=== PATIENT | male | born 1940 | race Caucasian/White ===

== ENCOUNTER 2016-07-09 12:48 | Observation (INO) ==
[2016-07-09] MEDS ORDERED: Naloxone 0.4 MG/ML INJ IVP PRN (14:36)
[2016-07-09] MEDS ORDERED: *HR* Atropine Sulfate 1 MG/10 ML SYRINGE IVP PRN (14:38)
--- NOTE | 2016-07-09 14:43 | Pulmonology History & Physical ---
<PareshLester Hollins - Last Filed: 07/09/16 17:06> Date of Encounter: 07/09/16 Time of Encounter: 14:00 Assessment and Plan (1) Ingestion, drug, inadvertent or accidental Current visit: Yes Status: Acute Ragleyhasmukh Melgoza obtained active prescription list from their pharmacy - [email or web address]. Suspected ingestion: ASA 81mg Plavix 75mg Ranitidine Synthroid 100 mcg Ranexa 500mg Coreg 25mg Lasix 20mg Isosorbide mononitrate CR 120mg ER Patient did not overdose. Symptoms appear to be due to antihypertensive and rate limiting medications. - 12 Lead EKG in ICU shows sinus bradycardia with rate of 48. Normal intervals with LA 175, QRS 108, QT/QTc 483/451. Normal axis. 1mm Q-wave in inferio- lateral leads. Non-specific STT changes. - Place on monitor - Atropine 0.5mg IVP PRN bradycardia - 0.9% NS at maintenance rate - 125mL/hr - Cardiac diet - Continue to observe. - Anticipate discharge tomorrow. Qualifiers: Encounter type: initial encounter Qualified Code(s): T50.901A - Poisoning by unspecified drugs, medicaments and biological substances, accidental ( unintentional), initial encounter (2) Bradycardia Current visit: Yes Status: Acute Likely secondary to accidental ingestion. Plan as above. (3) Hypotension Current visit: Yes Status: Acute Likely secondary to accidental ingestion. Plan as above. Qualifiers: Hypotension type: hypotension due to drug Qualified Code(s): I95.2 - Hypotension due to drugs (4) DVT prophylaxis Current visit: Yes Status: Acute SCD's and TEDs. History of Present Illness Chief complaint: accidental overdose HPI: Mr. Justin is a 76 year old male who arrives via EMS from [facility]. Patient mistook his 's medications for his own and took her AM supply. Patient has reported psychiatric history to explain this mistake. Sent to [facility] ICU for monitoring. While at [facility], patient reported blurry vision, chest pain, nausea, dizziness - all now resolved. At [place] [facility]: patient's troponin was 0.00 and was bradycardic responsive to atropine. On intake to [facility] ICU, patient admitted to mild headache. Denied dizziness, changes in vision, weakness, chest pain, palpitations, dyspnea, diaphoresis. No tinnitis. Patient's is now bedside. Patient has a history of hypotension. Past Med Surg Social Fam HX - Past Medical History Medical history: GERD, hyperlipidemia, hypertension, kidney stones, myocardial infarction, TIA Psychiatric history: no psych history - Past Surgical History Surgical History: angioplasty/stent, herniorrhaphy - Social History Smoking Status: Never smoker Smokeless Tobacco Status: No Alcohol use: none Drug use: none - Family History Mother Living Status: Age at : 84 Cause of : unknown Hx Family Cardiac Disorders: Yes Father Living Status: Age at : 86 Hx Family Cardiac Disorders: Yes Hx Family Cancer: Yes Hx Family Endocrine Disorder: Yes (Diabetic) Medications and Allergies Clopidogrel [Plavix] 75 mg PO DAILY 06/21/15 [History] Metoprolol [Lopressor] 25 mg PO DAILY 06/21/15 [History] Omeprazole [PriLOSEC] 40 mg PO DAILY 06/21/15 [History] Citalopram Hydrobromide [Citalopram HBr] 40 mg PO DAILY 07/09/16 [History] TraZODone 50 mg PO DAILY 07/09/16 [History] Allergies No Known Allergies Allergy (Verified 06/21/15 08:28) All Systems: A 10-system review of systems was performed and is negative for pertinent findings except as documented above in the HPI. - Constitutional Constitutional: as per HPI - EENT Eyes: as per HPI Ears: as per HPI Nose, mouth and throat: headache(s), no dizziness, no dry mouth, no hoarseness - Cardiovascular Cardiovascular: no chest pain, no diaphoresis, no dyspnea, no edema, no irregular heart rhythm, no radiating jaw, neck or arm pain, no lightheadedness, no palpitations, no radiating pain, no syncope - Respiratory Respiratory: no cough, no dyspnea, no wheezing - Gastrointestinal Gastrointestinal: no cramping, no diarrhea, no heartburn, no nausea, no vomiting - Musculoskeletal Musculoskeletal: no weakness, no abnormal gait, no back pain, no numbness, no radiating pain into limb - Neurological Neurological: no abnormal hearing, no abnormal speech, no behavioral changes, no confusion Physical Examination Vital Signs: Afebrile. Patient bradycardic at 55. Mild hypotension with bp 90/56. O2 sat 88 % on RA with RR 14-16. General appearance: no acute distress, alert Eyes: nonicteric ENT: oropharynx moist Neck: supple Effort: normal Inspection: normal Auscultation: bilateral: clear Cardiovascular: regular rate and rhythm Gastrointestinal: normoactive bowel sounds, soft, non-tender, non-distended Integumentary: normal Extremities: no cyanosis, no edema, pink and warm, pulses normal Musculoskeletal: no deformities normal mental status, pupils equal and round mood appropriate, affect normal - VTE Reasons for not Prescribing Prophylaxis: Treatment not Indicated - Low risk for VTE <Arian Holland - Last Filed: 07/09/16 20:25> Date of Encounter: 07/09/16 History of Present Illness HPI: Mr. Justin is a 76 year old male All Systems: A 10-system review of systems was performed and is negative for pertinent findings except as documented above in the HPI. Physical Examination Vital Signs: Vital Signs, Last 4 Hours Temp Pulse Resp BP Pulse Ox 07/09/16 17:00 55 19 104/65 94 07/09/16 16:26 97.8 F 07/09/16 16:00 49 19 89/62 94 07/09/16 15:00 52 18 106/59 95 07/09/16 14:02 56 16 109/65 95 - Attending Attestation I examined this patient and my medical decision-making was reviewed with the ENDORSEMENT CLERK/PA/Advanced Practice Nurse/Resident Physician. I agree with the documented findings, disposition and treatment plan as described except to the extent set forth below. Patient seen and examined. Labs, radiology, chart personally reviewed. 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 He is at risk of side effects such as hypotension and bradycardia and that is why he needs close monitoring. If remain stable, will plan to discharge him tomorrow. He needs to be careful and better way to separate his medications from his . GI: Nutrition per dietary and GI prophylaxis per routine Heme: DVT prophylaxis per routine Renal; urine out put and renal funtion reviewed Endorcine: blood glucose is monitored Lines: all lines checked and no evidence of infections Skin: skin care to prevent pressure ulcers per nursing routine care Discussed with patient and his family at bedside.
[2016-07-09] MEDS: 0.9 % Sodium Chloride 1,000 ML IVC SCH (16:57)
[2016-07-10] MEDS: 0.9 % Sodium Chloride 1,000 ML IVC SCH (00:57)
--- NOTE | 2016-07-10 07:09 | Electrocardiograph Report ---
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
--- NOTE | 2016-07-10 07:45 | Discharge Summary ---
<Jeronimo Ferris - Last Filed: 07/10/16 07:43> Date of Encounter: 07/10/16 Time of Encounter: 07:43 - Discharge Diagnosis (1) Bradycardia Priority: Primary Status: Resolved Comments: Resolved. The patient is back to his baseline. Responded well to atropine as needed. (2) Hypotension Priority: Primary Status: Resolved Comments: Resolved. Qualifiers: Hypotension type: hypotension due to drug Qualified Code(s): I95.2 - Hypotension due to drugs (3) Ingestion, drug, inadvertent or accidental Priority: Secondary Status: Resolved Comments: The patient reports event as accidental. No suicidal ideation or thoughts of self harm. Qualifiers: Encounter type: initial encounter Qualified Code(s): T50.901A - Poisoning by unspecified drugs, medicaments and biological substances, accidental ( unintentional), initial encounter - Discharge Medications Home Medications: Clopidogrel [Plavix] 75 mg PO DAILY 06/21/15 [History] Metoprolol [Lopressor] 25 mg PO DAILY 06/21/15 [History] Omeprazole [PriLOSEC] 40 mg PO DAILY 06/21/15 [History] Citalopram Hydrobromide [Citalopram HBr] 40 mg PO DAILY 07/09/16 [History] TraZODone 50 mg PO DAILY 07/09/16 [History] Allergies/Adverse Reactions: Allergies No Known Allergies Allergy (Verified 06/21/15 08:28) Date of admission: 07/09/16 13:49 Primary care physician: Bassem Ramirez MD Discharging clinician: Arian Holland Anticipated date of discharge: 07/10/16 - Patient Status Disposition: Home, Self-Care Condition: Good Functional capacity at discharge: independent ambulation Overall status at discharge: patient is back to baseline - Discharge Instructions Follow Up With: Bassem Ramirez MD [Primary Care Provider] - 07/12/16 10:00 am Additional Instructions: Be cautious when taking your home medications. If you experience any symptoms such as chest pain, shortness of breath, dizziness, or loss of consciousness please return to the [facility]. - Diet and Activity Activity: increase activity as tolerated Diet: advance to your usual diet - Hospital Course Hospital course: Mr. Justin is a 76 year old male who has a PMH of GERD, HLD, HTN, kidney stones, previous NH, and TIA who presented for symptoms of blurry vision, chest pain, nausea, and dizziness. He had reportedly taken his 's medications instead of his own morning medications. The patient had a negative troponin and his bradycardia was responsive to atropine. The patient has a history of hypotension and took some of his 's medication including a medication for hypertension. He was monitored overnight in the ICU. The patient denies overdose or attempted self harm. He will be discharged in stable condition to return home and is back to his baseline. All questions were answered and the patient agrees with the plan of care. - Time Spent with Patient Total time spent providing and/or coordinating discharge services: Less than 30 minutes Physical Examination Vital Signs: Vital Signs, Last 4 Hours Temp Pulse Resp BP Pulse Ox 07/10/16 07:14 54 07/10/16 07:00 54 16 110/71 93 07/10/16 06:00 60 20 103/59 92 07/10/16 05:00 57 20 109/63 93 07/10/16 04:38 97.9 F 07/10/16 04:00 57 20 107/70 93 General appearance: no acute distress Eyes: nonicteric ENT: oropharynx moist Neck: supple Effort: normal Auscultation: bilateral: clear Cardiovascular: regular rate and rhythm, murmur noted Gastrointestinal: normoactive bowel sounds, tender, non-distended Integumentary: normal Extremities: no cyanosis normal mental status, non-focal exam mood appropriate - VTE Reasons for not Prescribing Prophylaxis: Treatment not Indicated - Low risk for VTE - Attending Attestation I examined this patient and my medical decision-making was reviewed with the BEHAVIOR CLINICIAN/PA/Advanced Practice Nurse/Resident Physician. I agree with the documented findings, disposition and treatment plan as described except to the extent set forth below. <Arian Holland M - Last Filed: 07/10/16 15:44> Date of Encounter: 07/10/16 Date of admission: 07/09/16 13:49 Primary care physician: Bassem Ramirez MD - Hospital Course Hospital course: Mr. Justin is a 76 year old male - Time Spent with Patient Total time spent providing and/or coordinating discharge services: - Attending Attestation Patient is doing much better and no bradycardia and BP is stable. He was advised to see his PCP and be careful and make sure it is not his medications. This was told his family as well. Patient is discharged home and examination other than systolic murmur is benign.
[2016-07-10 08:14] VITALS: BP 112/92
== END 2016-07-10 09:42 | disposition home or self-care (01) ==
LOC: ICNU
PROVIDERS: ADMIT Internal Medicine Pulmonary Disease; ATTEND Internal Medicine Pulmonary Disease

== ENCOUNTER 2018-09-28 18:00 | Observation (INO) ==
--- NOTE | 2018-09-28 18:43 | Emergency Department Note ---
Disposition Clinical Impression: Acute kidney injury Chest pain Qualifiers: Qualified Code(s): R07.9 - Disposition: Admitted As Inpatient Time of Disposition: 09:00 Chest Pain HPI - General Chief Complaint: ED Chest Pain Stated Complaint: CP Time Seen by Provider: 09/28/18 18:42 Source: patient, family Mode of arrival: ambulatory Limitations: no limitations Vital Signs Reviewed: Yes Nursing Notes Reviewed: Yes - History of Present Illness HPI Narrative: 78-year-old male past medical history of multiple strokes and heart attacks presented for one day of left sided "strong" chest pain that radiates into his jaw and left upper extremity. Patient states that this pain has been intermittent in nature ranging from a 7 out of 10-2 out of 10 on the pain scale he has not noted any palliative or provoking factors, he states that this does not feel like his previous heart attacks he notes he has some mild dyspnea but no nausea vomiting no numbness or paresthesias, no lightheadedness or dizziness, no other concerns or complaints at this time. Patient has not taken any aspirin or nitroglycerin prior to arrival. Pt complaint: chest pain Onset (ago): day(s) Duration: constant Pain Location: left chest Severity: severe Severity scale (1-10): 7 Pain Radiation: LUE Associated symptoms: Reports: dyspnea Treatments prior to arrival chest pain: none - Related Data Home Medications Medication Instructions Recorded Confirmed Clopidogrel [Plavix] 75 mg PO DAILY 06/21/15 09/29/18 Metoprolol [Lopressor] 25 mg PO DAILY 06/21/15 09/29/18 Omeprazole [PriLOSEC] 40 mg PO DAILY 06/21/15 09/29/18 Citalopram Hydrobromide 40 mg PO DAILY 07/09/16 09/29/18 [Citalopram HBr] traZODone [TraZODone] 50 mg PO DAILY 07/09/16 09/29/18 Allergies Allergy/AdvReac Type Severity Reaction Status Date / Time No Known Allergies Allergy Verified 06/21/15 08:28 Review of Systems: *See History of Present Illness for more detail Constitutional: Denies: fever, chills Cardiovascular: Admits chest pain Respiratory: Admits dyspnea, denies: cough, hemoptysis Gastrointestinal: Denies: abdominal pain, nausea, vomiting, diarrhea, constipation, hematemesis, melena, hematochezia Genitourinary: Denies: hematuria Musculoskeletal: Denies: back pain, neck pain Neurological: Admits to lightheadedness and dizziness Denies: headache, weakness, numbness, paresthesias, difficulty with ambulation. Endocrine: Denies: fatigue All systems ED: reviewed and negative except as stated. Review of Systems: As Per HPI Chest Pain PMH - Past Medical History Medical history: Reports: GERD, hyperlipidemia, hypertension, kidney stones, myocardial infarction, TIA Surgical history: Reports: angioplasty/stent, herniorrhaphy Psychiatric history: Reports: no psych history - Social History Smoking Status: Never smoker Alcohol use: Reports: none Drug use: Reports: none Physical Exam Constitutional: No acute distress, [id number], engaged to conversation, speech is fluid, answers questions appropriately Neuro: GCS 15, no overt focal neurological deficits Head: Atraumatic, normocephalic Eyes: Pupils equal, round and reactive to light, no scleral icterus, no conjunctival injection Neck: Trachea midline without deviation. Anterior neck is supple without swelling. *Chest: Symmetric chest wall rise *Heart: Cardiac rhythm and rate are regular with S1 and S2 , no S3 or S4 apprec iated, no murmurs, gallops, rubs, or clicks. *Lungs: Lungs are clear to auscultation bilaterally, without accessory muscle use or prolonged expiratory phase. No wheezes, rhonchi or stridor appreciated. Abdomen: Abdomen is flat, soft to palpation, normal bowel sounds. No abdominal bruit auscultated. Non-distended, non-rigid, no organomegaly, no ascites appreciated. No pulsatile mass, no tenderness or guarding to palpation in all four quadrants, no rebound Extremities: Normal capillary refill without evidence of pedal edema, joint swelling or erythema. Pulses/motor/sensory intact in all 4 extremities. Psychiatric exam: Patient displays a normal affect and mood for the environment. No overt signs of hallucination. Integumentary: warm, dry, intact, normal color. No rash, cyanosis, diaphoresis, erythema, or pallor - General Limitations: no limitations General appearance: alert, in no apparent distress Course Course Narrative: ACEs workup to include CBC, BMP, troponin, EKG/old EKG chest x-ray Aspirin and nitroglycerin for management of patient's symptoms. - Reevaluation(s) Reevaluation #1: A shows significant relief of symptoms after 1 nitroglycerin tablet in the ED. Vital Signs Temperature 98.2 F 09/28/18 18:05 Pulse Rate 48 09/28/18 18:05 Respiratory Rate 18 09/28/18 18:05 Blood Pressure 116/64 09/28/18 18:05 O2 Sat by Pulse Oximetry 95 09/28/18 18:05 Temperature 98.0 F 09/29/18 07:40 Pulse Rate 89 09/29/18 07:40 Respiratory Rate 16 09/29/18 07:40 Blood Pressure 138/64 09/29/18 07:40 O2 Sat by Pulse Oximetry 92 09/29/18 07:40 Oxygen Delivery Oxygen Delivery Room Air Chest Pain - MDM Narrative Medical decision making narrative: Patient's heart score is 5 at baseline. Mild AKIwith elevated creatinine - mildly elevated WBC Otherwise unremarkable workup. Patient be admitted to hospital medicine service for further evaluation and management of chest pain and ACS rule out. Patient family bedside verbalize her understanding and agreement with plan and the patient is hemodynamically stable time of admission. - Lab Data Lab results reviewed: Yes I reviewed the patient's lab results. Result diagrams: 09/29/18 00:55 09/29/18 00:55 Lab Results 09/28/18 09/28/18 09/28/18 Range/Units 18:37 18:37 20:57 WBC 12.2 H (4.3-11.1) K/mcL RBC 5.08 (4.19-5.50) M/mcL Hgb 14.9 (12.9-16.9) g/dL Hct 46.0 (37.5-50.1) % MCV 90.6 (83.0-100.0) fL MCH 29.3 (28.0-33.3) pg MCHC 32.4 (31.6-35.5) g/dL RDW 13.4 (11.5-14.5) % Plt Count 186 (140-400) K/mcL MPV 10.3 (9.4-12.4) fL Immature Gran % 0.6 (0-4) % Seg Neutrophils % 70.7 % Lymphocytes % 16.7 % Monocytes % 8.9 % Eosinophils % 2.4 % Basophils % 0.7 % Neutrophils # 8.6 (1.6-8.9) K/mcL Lymphocytes # 2.0 (0.6-4.6) K/mcL Monocytes # 1.1 (0.0-1.3) K/mcL Eosinophils # 0.3 (0.0-0.6) K/mcL Basophils # 0.1 (0.0-0.2) K/mcL Sodium 142 (136-145) mEq/L Potassium 4.5 (3.5-5.1) mEq/L Chloride 103 (98-107) mEq/L Carbon Dioxide 31 H (23-29) mEq/L BUN 25 H (8-23) mg/dL Creatinine 1.32 H (0.70-1.30) mg/dL Est GFR ( Amer) > 60 (> 60) Est GFR (Non-Af Amer) 52 L (> 60) BUN/Creatinine Ratio 19 (6-26) Glucose 87 (70-105) mg/dL Calculated Osmolality 298 (280-300) Calcium 9.5 (8.6-10.3) mg/dL Troponin I < 0.03 (< 0.04) ng/mL Urine Color Yellow (Yellow) Urine Clarity Clear (Clear) Urine pH 5.5 (5.0-8.0) pH Units Ur Specific [place] 1.024 (1.010-1.025) Urine Protein Negative (Neg-Trace) mg/dL Urine Glucose (UA) Normal (Normal) mg/dL Urine Ketones Trace H (Negative) mg/dL Urine Blood Negative (Negative) Urine Nitrite Negative (Negative) Urine Bilirubin Negative (Negative) Urine Urobilinogen Normal (Normal) mg/dL Ur Leukocyte Esterase Negative (Negative) Ur Culture Indicated? NO (NO) - Radiology Data Radiology results reviewed: Yes I reviewed the patient's radiology results. Chest X-Ray 09/28/18 18:08 IMPRESSION: 1. Chronic asymmetric elevation left hemidiaphragm with left basilar subsegmental atelectasis. 2. Calcific atherosclerosis aorta. 3. Cardiomegaly. D/ / Jamshid Fernandez / Jamshid Fernandez Interpreting Provider: Jamshid Fernandez - EKG Data EKG attestation: Yes I reviewed and interpreted this EKG. EKG results narrative: Patient's EKG shows sinus bradycardia with a heart of 44 bpm, IA interval of 167 ms, QS duration 101 ms, QT/QTc interval 492/41 ms respectively. There are no significant ST segment elevations, depressions, pathologic is, abnormal T-wave inversions, no hernias signs acute ischemic change, there is diffuse mild IA segment depressions without reciprocal change which are consistent with prior EKG. This EKG performed today is generally consistent with prior EKG that was performed in 07/16/2016. Heart Score - Score History: Moderately Suspicious EKG: Normal Age: Greater than 65 Risk Factors: Equal/Greater than 3 risk factor or history of atherosclerotic disease Troponin: Less than normal limit HEART Score Total: 5
[2018-09-28 19:22] LABS: Basophils # 0.1 K/mcL (0.0-0.2); Basophils % 0.7 %; Eosinophils # 0.3 K/mcL (0.0-0.6); Eosinophils % 2.4 %; Hemoglobin 14.9 g/dL (12.9-16.9); Immature Granulocytes % 0.6 % (0-4); Lymphocytes % 16.7 %; Mean Corpuscular HGB Conc 32.4 g/dL (31.6-35.5); Mean Corpuscular Hemoglobin 29.3 pg (28.0-33.3); Mean Corpuscular Volume 90.6 fL (83.0-100.0); Mean Platelet Volume 10.3 fL (9.4-12.4); Monocytes # 1.1 K/mcL (0.0-1.3); Monocytes % 8.9 %; Neutrophils # 8.6 K/mcL (1.6-8.9); Platelet Count 186 K/mcL (140-400); Red Blood Count 5.08 M/mcL (4.19-5.50); Red Cell Distribution Width 13.4 % (11.5-14.5); Segmented Neutrophils % 70.7 %; White Blood Count 12.2 K/mcL (4.3-11.1)
[2018-09-28] MEDS ORDERED: Aspirin 81 MG TAB.CHEW PO STA (19:28)
[2018-09-28 19:42] LABS: BUN/Creatinine Ratio 19 (6-26); Blood Urea Nitrogen 25 mg/dL (8-23); Calcium 9.5 mg/dL (8.6-10.3); Carbon Dioxide 31 mEq/L (23-29); Chloride 103 mEq/L (98-107); Glucose 87 mg/dL (70-105); Osmolality,Calculated 298 (280-300); Potassium 4.5 mEq/L (3.5-5.1); Sodium 142 mEq/L (136-145); eGFR For African Americans > 60 (> 60); eGFR For Non-African Americans 52 (> 60)
[2018-09-28 19:43] LABS: Troponin I < 0.03 ng/mL (< 0.04)
[2018-09-28] MEDS: Nitroglycerin 0.4 MG TAB.SUBL SL SCH (20:17)
[2018-09-28 21:08] LABS: Bilirubin,Urine Negative (Negative); Blood,Urine Negative (Negative); Clarity,Urine Clear (Clear); Color,Urine Yellow (Yellow); Glucose,Urine (UA) Normal (Normal); Ketones,Urine Trace mg/dL (Negative); Leukocyte Esterase,Urine Negative (Negative); Nitrite,Urine Negative (Negative); PH,Urine 5.5 pH Units (5.0-8.0); Protein,Urine Negative (Neg-Trace); Specific Gravity,Urine 1.024 (1.010-1.025); Urobilinogen,Urine Normal (Normal)
--- NOTE | 2018-09-28 23:15 | Internal Med History&Physical ---
Date of Encounter: 09/28/18 Time of Encounter: 16:27 Internal Medicine - H&P: HPI Chief complaint: CP History of present illness: Mr. Justin is a 78 year male with past medical history of CVA and myocardial infarction who presented with severe left sided chest pain that radiated to his jaw and his upper extremities. The patient is pressure-like in character was no alleviating factors or exacerbating factors. The pain is associated with shortness of breath with no diaphoresis. The patient denies palpitation or orthopnea, paroxysmal nocturnal dyspnea or progressive worsening of lower extremity edema. The patient was evaluated by the ER staff and his first set of troponin was no significant abnormalities and EKG was was no significant ST-T wave changes. His laboratory data was suggestive of acute kidney injury. The patient was admitted for further evaluation and management and to rule out acute cardiac syndrome. Past Med Surg Social Fam HX - Past Medical History Medical history: GERD, hyperlipidemia, hypertension, kidney stones, myocardial infarction, TIA Additional medical history: Head injury 15 years ago. Pt. at [facility] x 8 weeks. Macular degeneration Psychiatric history: no psych history - Past Surgical History Surgical History: angioplasty/stent, herniorrhaphy Additional surgical history: Left shoulder rotator cuff repair 30 years ago - Social History Smoking Status: Never smoker Smokeless Tobacco Status: No Alcohol use: none Drug use: none - Family History Mother Living Status: Hx Family Cardiac Disorders: Yes Father Living Status: Hx Family Cardiac Disorders: Yes Hx Family Cancer: Yes Hx Family Endocrine Disorder: Yes (Diabetic) Internal Medicine - H&P: Meds Clopidogrel [Plavix] 75 mg PO QAM 06/21/15 [History] Metoprolol [Lopressor] 12.5 mg PO BID 06/21/15 [History] Citalopram Hydrobromide [Citalopram HBr] 40 mg PO DAILY 07/09/16 [History] Atorvastatin [Lipitor] 40 mg PO QAM 09/29/18 [History] Butalbital/Acetaminophen [Butalbital-Acetaminophn 50-325] 1 tab PO HS PRN 09/29/18 [History] Diclofenac Sodium 4 gm TP QID PRN 09/29/18 [History] Multivit-Min/Folic/Vit K/Lycop [Men's 50 Plus Multivitamin Tab] 1 tab PO DAILY 09/29/18 [History] Omeprazole [PriLOSEC] 40 mg PO QAM 09/29/18 [History] Allergy/AdvReac Type Severity Reaction Status Date / Time No Known Allergies Allergy Verified 09/29/18 13:53 All Systems PM: A 10-system review of systems was performed and is negative for pertinent findings except as documented above in the HPI. - Constitutional Vitals: Temp Pulse Resp BP Pulse Ox 98.2 F 44 16 118/69 93 09/28/18 18:05 09/28/18 22:56 09/28/18 22:56 09/28/18 22:56 09/28/18 22:56 General appearance: Present: A&O X 3 Exam: ` - Head Head exam: Present: atraumatic, normocephalic - Neck Neck exam general surgery: Present: supple, trachea midline. Absent: lymphadenopathy - Respiratory Respiratory exam: Present: CTAB. Absent: accessory muscle use, rales, rhonchi, wheezes - Cardiovascular Cardiovascular exam: Present: RRR, +S1, +S2. Absent: diastolic murmur, gallop, rubs, systolic murmur - GI/Abdominal GI/Abdominal exam: Present: normal bowel sounds, soft, no peritoneal signs. Absent: distended, tenderness - Extremities Exam Extremities exam: Present: warm, radial pulses palpable and symmetrical. Absent: calf tenderness, cyanotic, pedal edema Internal Med - H&P Results - Labs CBC & Chem 7: 09/29/18 00:55 09/29/18 00:55 Labs: Short CBC 09/28/18 Range/Units 18:37 WBC 12.2 H (4.3-11.1) K/mcL Hgb 14.9 (12.9-16.9) g/dL Hct 46.0 (37.5-50.1) % Plt Count 186 (140-400) K/mcL Neutrophils # 8.6 (1.6-8.9) K/mcL BMP 09/28/18 18:37 Sodium 142 Potassium 4.5 Chloride 103 Carbon Dioxide 31 H BUN 25 H Creatinine 1.32 H Glucose 87 Calcium 9.5 Cardiac Enzymes 09/28/18 Range/Units 18:37 Troponin I < 0.03 (< 0.04) ng/mL Urine 09/28/18 Range/Units 20:57 Urine Color Yellow (Yellow) Urine Clarity Clear (Clear) Urine pH 5.5 (5.0-8.0) pH Units Ur Specific [place] 1.024 (1.010-1.025) Urine Protein Negative (Neg-Trace) mg/dL Urine Glucose (UA) Normal (Normal) mg/dL - Impressions ITS Impressions Chest X-Ray 09/28/18 18:08 IMPRESSION: 1. Chronic asymmetric elevation left hemidiaphragm with left basilar subsegmental atelectasis. 2. Calcific atherosclerosis aorta. 3. Cardiomegaly. D/ / Jamshid Fernandez / Jamshid Fernandez Interpreting Provider: Jamshid Fernandez - Assessment and Plan (1) Chest pain Status: Acute Assessment and plan: - Chest pain in the setting of extensive cardiac history including multiple cardiac infarction rule out acute coronary syndrome DD *Muskuloskeletal CP - myofascial strain, costochondritis *GERD *Esophageal spasm *Pericarditis - unlikely *Pneumonia - no infiltrate on CXR PLAN: - cardiac enzymes x 2 q 8 hr - EKG now and in AM - ASA - O2 by NC to keep SpO2 greater than 92% - UA - Urine toxic screen - CBCD, BMP in AM - Fasting lipids - 2D Echo Qualifiers: Qualified Code(s): R07.9 - Chest pain, unspecified (2) Hyperlipidemia Status: Chronic Assessment and plan: The patient have history of hyperlipidemia and multiple CVA, statin is not included in his medication list, we will obtain fasting lipid profile in a.m. Qualifiers: Hyperlipidemia type: unspecified Qualified Code(s): E78.5 - Hyperlipidemia, unspecified (3) History of CVA (cerebrovascular accident) Status: Acute Assessment and plan: We will continue home Plavix (4) History of myocardial infarction Status: Acute Assessment and plan: We will continue home Plavix, patient had an episode of bradycardia with reported around 40, ECG revealed "sinus bradycardia with a heart of 44 bpm, UT interval of 167 ms, QS duration 101 ms, QT/QTc interval 492/41 ms respectively. There are no significant ST segment elevations, depressions, pathologic is, abnormal T-wave inversions, no hernias signs acute ischemic change, there is d iffuse mild UT segment depressions without reciprocal change which are consistent with prior EKG " . We will continue home Plavix. Hold Metoprolol for now. - Time Spent With Patient Total time spent is greater than 50% in coordination of care (as documented) at patient's floor/unit and/or counseling patient:
[2018-09-29] MEDS ORDERED: Ondansetron 4 MG/2 ML VIAL IVP PRN (00:01)
[2018-09-29] MEDS ORDERED: Acetaminophen 325 MG TABLET PO PRN (00:01)
[2018-09-29] MEDS ORDERED: Naloxone 0.4 MG/ML INJ IVP PRN (00:01)
[2018-09-29] MEDS ORDERED: *HR* HYDROcodone/Acet 5/325 mg TABLET PO PRN (00:01)
[2018-09-29 01:12] LABS: Basophils # 0.1 K/mcL (0.0-0.2); Basophils % 0.9 %; Eosinophils # 0.2 K/mcL (0.0-0.6); Eosinophils % 2.9 %; Hematocrit 43.4 % (37.5-50.1); Hemoglobin 13.9 g/dL (12.9-16.9); Immature Granulocytes % 0.4 % (0-4); Lymphocytes # 2.3 K/mcL (0.6-4.6); Lymphocytes % 27.9 %; Mean Corpuscular Hemoglobin 29.4 pg (28.0-33.3); Mean Corpuscular Volume 91.8 fL (83.0-100.0); Mean Platelet Volume 10.5 fL (9.4-12.4); Monocytes # 0.9 K/mcL (0.0-1.3); Monocytes % 10.6 %; Neutrophils # 4.7 K/mcL (1.6-8.9); Platelet Count 167 K/mcL (140-400); Red Blood Count 4.73 M/mcL (4.19-5.50); Red Cell Distribution Width 13.4 % (11.5-14.5); Segmented Neutrophils % 57.3 %; White Blood Count 8.2 K/mcL (4.3-11.1)
[2018-09-29 01:20] LABS: Prothrombin Time 11.4 Seconds (9.4-12.1)
[2018-09-29 01:22] LABS: Activated Partial Thrombo Time 31.8 Seconds (26.0-36.0)
[2018-09-29] MEDS: Nitroglycerin 0.4 MG TAB.SUBL SL SCH ×2 (01:27→01:28)
[2018-09-29 01:32] LABS: Alanine Aminotransferase 12 Units/L (7-52); Albumin 4.1 g/dL (3.5-5.7); Alkaline Phosphatase 69 Units/L (34-104); Aspartate Amino Transferase 17 Units/L (13-39); BUN/Creatinine Ratio 22 (6-26); Bilirubin,Total 0.8 mg/dL (0.3-1.0); Blood Urea Nitrogen 26 mg/dL (8-23); Calcium 9.3 mg/dL (8.6-10.3); Carbon Dioxide 29 mEq/L (23-29); Chloride 103 mEq/L (98-107); Chol/HDL Ratio 2.3 (0-4.9); Cholesterol 125 mg/dL (< 200); Globulin 2.1 g/dL (2.4-3.5); Glucose 88 mg/dL (70-105); HDL Cholesterol 54 mg/dL (40-59); LDL Cholesterol,Calculated 58 mg/dL (0-99); Osmolality,Calculated 296 (280-300); Phosphorous 3.2 mg/dL (2.7-4.5); Potassium 4.2 mEq/L (3.5-5.1); Sodium 141 mEq/L (136-145); Total Protein 6.2 g/dL (6.4-8.9); Triglycerides 65 mg/dL (< 150); eGFR For African Americans > 60 (> 60); eGFR For Non-African Americans > 60 (> 60)
[2018-09-29] MEDS: 0.9 % Sodium Chloride 1,000 ML IVC SCH ×2 (01:37→10:00)
[2018-09-29] MEDS: traZODone 50 MG TABLET PO SCH (09:52)
--- NOTE | 2018-09-29 12:42 | Internal Med Progress Note ---
Hospitalist Progress Note - Encounter Date of Encounter: 09/29/18 Time of Encounter: 09:15 - Subjective Interval History: Pt was seen and examined at bed side. He did have angina equivalent CP y/d , located sub sternal, non radiating developed after a lawn moving. He denied any CP.. His CP resolved with ASA and SL Nitro - Exam Vitals: Temp Pulse Resp BP Pulse Ox 98.1 F 67 16 95/53 93 09/29/18 10:50 09/29/18 10:50 09/29/18 10:50 09/29/18 10:50 09/29/18 10:50 Exam: Gen: Alert, awake, Oriented to time,place and person Chest: Diminished breath sounds B/L, No wheezing, No crackles, No rales Heart: S1S2+ RRR No murmurs Abd: Soft, NT, BS +, No organomegaly Ext: No edema, pulses are palpable, No calf tenderness Neuro : No acute focal neuro deficits noticed Skin: No rash. - Assessment and Plan (1) Chest pain Current Visit: Yes Status: Acute Assessment and Plan: So negative serial trop x 3 Denied any CP now EKG showed Sinus tuan, no acute ischemic changes noticed Ordered nuclear stress test to r/o IA since he is high risk for ACS cont Plavix, Nitro PRN, unable to start him on BB due to his tuan episodes and low BP cont close monitoring (2) Hyperlipidemia Current Visit: Yes Status: Acute Assessment and Plan: reviewed Lipid profile LDL @ 58 (3) History of CVA (cerebrovascular accident) Current Visit: Yes Status: Acute Assessment and Plan: Continue home Plavix (4) History of myocardial infarction Current Visit: Yes Status: Acute Assessment and Plan: s/p PCI as per Pt cont Plavix Held Metoprolol since he does have tuan spells will f/u on Echo - Time Spent with Patient Total time spent is greater than 50% in coordination of care (as documented) at patient's floor/unit and/or counseling patient: Internal Medicine: Result - Labs CBC & Chem 7: 09/29/18 00:55 09/29/18 00:55 Labs: Short CBC 09/28/18 09/29/18 Range/Units 18:37 00:55 WBC 12.2 H 8.2 (4.3-11.1) K/mcL Hgb 14.9 13.9 (12.9-16.9) g/dL Hct 46.0 43.4 (37.5-50.1) % Plt Count 186 167 (140-400) K/mcL Neutrophils # 8.6 4.7 (1.6-8.9) K/mcL BMP 09/28/18 09/29/18 18:37 00:55 Sodium 142 141 Potassium 4.5 4.2 Chloride 103 103 Carbon Dioxide 31 H 29 BUN 25 H 26 H Creatinine 1.32 H 1.17 Glucose 87 88 Calcium 9.5 9.3 Cardiac Enzymes 09/28/18 09/29/18 09/29/18 Range/Units 18:37 00:55 06:17 Troponin I < 0.03 < 0.03 < 0.03 (< 0.04) ng/mL Liver Function 09/29/18 Range/Units 00:55 Total Bilirubin 0.8 (0.3-1.0) mg/dL AST 17 (13-39) Units/L ALT 12 (7-52) Units/L Alkaline Phosphatase 69 (34-104) Units/L Albumin 4.1 (3.5-5.7) g/dL Urine 09/28/18 Range/Units 20:57 Urine Color Yellow (Yellow) Urine Clarity Clear (Clear) Urine pH 5.5 (5.0-8.0) pH Units Ur Specific [place] 1.024 (1.010-1.025) Urine Protein Negative (Neg-Trace) mg/dL Urine Glucose (UA) Normal (Normal) mg/dL - ABG Interpretation ABG results: PT/INR, D-dimer PT 11.4 Seconds (9.4-12.1) 09/29/18 00:55 - Impressions Impressions Chest X-Ray 09/28/18 18:08 IMPRESSION: 1. Chronic asymmetric elevation left hemidiaphragm with left basilar subsegmental atelectasis. 2. Calcific atherosclerosis aorta. 3. Cardiomegaly. D/ / Jamshid Fernandez / Jamshid Fernandez Interpreting Provider: Jamshid Fernandez Consult Discharge Plan - Plan Referrals: Bassem Ramirez MD [Primary Care Provider] - (1) Chest pain Qualifiers: Qualified Code(s): R07.9 - Chest pain, unspecified (2) Hyperlipidemia Qualifiers: Hyperlipidemia type: unspecified Qualified Code(s): E78.5 - Hyperlipidemia, unspecified
--- NOTE | 2018-09-29 17:05 | Electrocardiograph Report ---
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
--- NOTE | 2018-09-29 22:49 | Electrocardiograph Report ---
[address] [address] Test Date: 2018-09-28 Pat Name: Endy Silveiragomery Department: 104 Room: 3B Gender: General Cleaner: Kiarra : 1940 Requested By: Juan Ballard Order Number: [id number] Reading MD: Geoffrey Duncan Measurements Intervals [place] Rate: 46 P: 56 WV: 163 QRS: 48 QRSD: 108 T: 55 QT: 456 QTc: 416 Interpretive Statements SINUS BRADYCARDIA Electronically Signed On 09-29-2018 22:47:27 EDT by Geoffrey Duncan
[2018-09-30] MEDS ORDERED: Regadenoson 0.4 MG/5 ML SYRINGE IVP ONE ×2 (07:46→07:47)
[2018-09-30] MEDS: traZODone 50 MG TABLET PO SCH (09:29)
[2018-09-30 11:07] VITALS: BP 109/66
--- NOTE | 2018-09-30 12:38 | Discharge Summary ---
- NOTES TO OUTPATIENT PROVIDER Notes to Outpatient Provider: f/u with PCP in one week. f/u with your regular chief design branch in 1-2 weeks. Orders not resulted at time of discharge: Pending orders 09/29/18 00:01 Urinalysis reflex Microscopic [URIN] Routine 09/30/18 07:00 NM no perf SPECT multi [NM] Routine Date of Encounter: 09/30/18 Time of Encounter: 12:34 - Discharge Diagnosis (1) Chest pain Priority: Primary Status: Acute Qualifiers: Qualified Code(s): R07.9 - Chest pain, unspecified (2) Hyperlipidemia Priority: Secondary Status: Chronic Qualifiers: Hyperlipidemia type: unspecified Qualified Code(s): E78.5 - Hyperlipidemia, unspecified (3) History of CVA (cerebrovascular accident) Priority: Secondary Status: Acute (4) History of myocardial infarction Priority: Secondary Status: Acute Hospital course: Mr. Justin is a 78 year male with past medical history of CVA, HTN, HLD and myocardial infarction pt presented to ER with severe left sided chest pain that radiated to his jaw and his upper extremities. He was admitted in the hospital and placed him on desk monitor. His serial troponin were negative. He denied any more active CP now. Since he is high risk for ACS, he did go for nuclear stress test came back as negative for ischemia / infarction. So will d/c him home in stable condition today. - Time Spent with Patient Total time spent providing and/or coordinating discharge services: - Discharge Medications Prescriptions: Continued Clopidogrel [Plavix] 75 mg PO QAM Metoprolol [Lopressor] 12.5 mg PO BID Atorvastatin [Lipitor] 40 mg PO QAM Butalbital/Acetaminophen [Butalbital-Acetaminophn 50-325] 1 tab PO HS PRN PRN Reason: Migraine Headache Diclofenac Sodium 4 gm TP QID PRN PRN Reason: Pain Omeprazole [PriLOSEC] 40 mg PO QAM Multivit-Min/Folic/Vit K/Lycop [Men's 50 Plus Multivitamin Tab] 1 tab PO DAILY Citalopram Hydrobromide [Citalopram HBr] 40 mg PO DAILY Home Medications: Clopidogrel [Plavix] 75 mg PO QAM 06/21/15 [History] Metoprolol [Lopressor] 12.5 mg PO BID 06/21/15 [History] Citalopram Hydrobromide [Citalopram HBr] 40 mg PO DAILY 07/09/16 [History] Atorvastatin [Lipitor] 40 mg PO QAM 09/29/18 [History] Butalbital/Acetaminophen [Butalbital-Acetaminophn 50-325] 1 tab PO HS PRN 09/29/18 [History] Diclofenac Sodium 4 gm TP QID PRN 09/29/18 [History] Multivit-Min/Folic/Vit K/Lycop [Men's 50 Plus Multivitamin Tab] 1 tab PO DAILY 09/29/18 [History] Omeprazole [PriLOSEC] 40 mg PO QAM 09/29/18 [History] Allergies/Adverse Reactions: Allergy/AdvReac Type Severity Reaction Status Date / Time No Known Allergies Allergy Verified 09/29/18 13:53 Date of admission: 09/28/18 23:14 Primary care physician: Bassem Ramirez MD - Constitutional Vitals: Temp Pulse Resp BP Pulse Ox 97.7 F 94 16 109/66 95 09/30/18 11:03 09/30/18 11:03 09/30/18 11:03 09/30/18 11:03 09/30/18 11:03 General appearance: Present: A&O X 3 Exam: Gen: Alert, awake, Oriented to time,place and person Chest: Diminished breath sounds B/L, No wheezing, No crackles, No rales Heart: S1S2+ RRR No murmurs Abd: Soft, NT, BS +, No organomegaly Ext: No edema, pulses are palpable, No calf tenderness Neuro : No acute focal neuro deficits noticed Skin: No rash. - Patient Status Disposition: Home, Self-Care Condition: Good - Discharge Instructions Follow Up With: Bassem Ramirez MD [Primary Care Provider] - - Diet and Activity Activity: increase activity as tolerated Diet: low salt diet
--- NOTE | 2018-09-30 16:10 | Emergency Department Note ---
Disposition Clinical Impression: Acute kidney injury Chest pain Qualifiers: Qualified Code(s): R07.9 - Disposition: Admitted As Inpatient Condition: Good Time of Disposition: 21:00 General Adult HPI - General Chief complaint: ED Chest Pain Stated complaint: CP Time Seen by Provider: 09/28/18 18:42 Source: patient, family Mode of arrival: ambulatory Limitations: no limitations - History of Present Illness Pain Scale: 0 - Related Data Home Medications Medication Instructions Recorded Confirmed Clopidogrel [Plavix] 75 mg PO QAM 06/21/15 09/29/18 Metoprolol [Lopressor] 12.5 mg PO BID 06/21/15 09/29/18 Citalopram Hydrobromide 40 mg PO DAILY 07/09/16 09/29/18 [Citalopram HBr] Atorvastatin [Lipitor] 40 mg PO QAM 09/29/18 09/29/18 Butalbital/Acetaminophen 1 tab PO HS PRN 09/29/18 09/29/18 [Butalbital-Acetaminophn 50-325] Diclofenac Sodium 4 gm TP QID PRN 09/29/18 09/29/18 Multivit-Min/Folic/Vit K/Lycop 1 tab PO DAILY 09/29/18 09/29/18 [Men's 50 Plus Multivitamin Tab] Omeprazole [PriLOSEC] 40 mg PO QAM 09/29/18 09/29/18 Allergies Allergy/AdvReac Type Severity Reaction Status Date / Time No Known Allergies Allergy Verified 09/29/18 13:53 Past Medical History - Past Medical History Medical history: Reports: GERD, hyperlipidemia, hypertension, kidney stones, myocardial infarction, TIA Surgical history: Reports: angioplasty/stent, herniorrhaphy Psychiatric history: Reports: no psych history - Social History Smoking Status: Never smoker Smokeless Tobacco Status: No Alcohol use: Reports: none Drug use: Reports: none Physical Exam - General Limitations: no limitations General appearance: alert, in no apparent distress Course Vital Signs Temperature 98.2 F 09/28/18 18:05 Pulse Rate 48 09/28/18 18:05 Respiratory Rate 18 09/28/18 18:05 Blood Pressure 116/64 09/28/18 18:05 O2 Sat by Pulse Oximetry 95 09/28/18 18:05 Temperature 97.7 F 09/30/18 11:03 Pulse Rate 94 09/30/18 11:03 Respiratory Rate 16 09/30/18 11:03 Blood Pressure 109/66 09/30/18 11:03 O2 Sat by Pulse Oximetry 95 09/30/18 11:03 Oxygen Delivery Oxygen Delivery Room Air Medical Decision Making - Lab Data Result diagrams: 09/29/18 00:55 09/29/18 00:55 Lab Results 09/28/18 09/28/18 09/28/18 Range/Units 18:37 18:37 20:57 WBC 12.2 H (4.3-11.1) K/mcL RBC 5.08 (4.19-5.50) M/mcL Hgb 14.9 (12.9-16.9) g/dL Hct 46.0 (37.5-50.1) % MCV 90.6 (83.0-100.0) fL MCH 29.3 (28.0-33.3) pg MCHC 32.4 (31.6-35.5) g/dL RDW 13.4 (11.5-14.5) % Plt Count 186 (140-400) K/mcL MPV 10.3 (9.4-12.4) fL Immature Gran % 0.6 (0-4) % Seg Neutrophils % 70.7 % Lymphocytes % 16.7 % Monocytes % 8.9 % Eosinophils % 2.4 % Basophils % 0.7 % Neutrophils # 8.6 (1.6-8.9) K/mcL Lymphocytes # 2.0 (0.6-4.6) K/mcL Monocytes # 1.1 (0.0-1.3) K/mcL Eosinophils # 0.3 (0.0-0.6) K/mcL Basophils # 0.1 (0.0-0.2) K/mcL Sodium 142 (136-145) mEq/L Potassium 4.5 (3.5-5.1) mEq/L Chloride 103 (98-107) mEq/L Carbon Dioxide 31 H (23-29) mEq/L BUN 25 H (8-23) mg/dL Creatinine 1.32 H (0.70-1.30) mg/dL Est GFR ( Amer) > 60 (> 60) Est GFR (Non-Af Amer) 52 L (> 60) BUN/Creatinine Ratio 19 (6-26) Glucose 87 (70-105) mg/dL Calculated Osmolality 298 (280-300) Calcium 9.5 (8.6-10.3) mg/dL Troponin I < 0.03 (< 0.04) ng/mL Urine Color Yellow (Yellow) Urine Clarity Clear (Clear) Urine pH 5.5 (5.0-8.0) pH Units Ur Specific [place] 1.024 (1.010-1.025) Urine Protein Negative (Neg-Trace) mg/dL Urine Glucose (UA) Normal (Normal) mg/dL Urine Ketones Trace H (Negative) mg/dL Urine Blood Negative (Negative) Urine Nitrite Negative (Negative) Urine Bilirubin Negative (Negative) Urine Urobilinogen Normal (Normal) mg/dL Ur Leukocyte Esterase Negative (Negative) Ur Culture Indicated? NO (NO) Attestation Statement - Attestation Attestation: I examined this patient and my medical decision-making was reviewed with the Resident Physician. I agree with the documented findings, disposition and treatment plan as described except to the extent set forth below. I was present for the resident's EKG interpretation. Chest pain with moderate risk HEART score, admitted for further evaluation. Pain-free at the time of ad mission.
== END 2018-09-30 14:35 | disposition home or self-care (01) ==
LOC: 3BNU 18:00 → EMEROOARM 18:00 → SUATTDRO 23:14 → 3BNU 23:34
PROVIDERS: ADMIT Internal Medicine Nephrology; ATTEND Family Medicine